=== PATIENT | male | born 1985 | race Caucasian/White ===

== ENCOUNTER 2018-09-01 22:00 | Emergency (ER) | payer OTHER ==
--- NOTE | 2018-09-01 22:09 | EDPHY ---
H & P Time Seen by Provider: 09/01/18 22:08 HPI/ROS: Chief complaint. Migraine headache HPI. 33-year-old male with history of migraine headaches. Recently moved here from [place] and does not have his usual Imitrex that he treats his headaches with. This is a typical headache and began about 30 min ago. He gets a visual aura at onset. No recent head injury. 2 weeks ago had URI symptoms. Denies focal weakness or paresthesias. Headache is typical. ROS 10 systems were reviewed and negative with the exception of the elements mentioned in the history of present illness Past Medical/Surgical History: Migraine headaches Social History: Single, nonsmoker, no alcohol Physical Exam: General Appearance: Alert pleasant well-developed male moderate distress vital signs are stable Eyes: Pupils equal and round no pallor or injection. ENT, Mouth: Mucous membranes are moist. Respiratory: There are no retractions, lungs are clear to auscultation. Cardiovascular: Regular rate and rhythm. Gastrointestinal: Abdomen is soft and nontender, no masses, bowel sounds normal. Neurological: Awake and alert, sensory and motor exams grossly normal. Skin: Warm and dry, no rashes. Musculoskeletal: Neck is supple nontender. Extremities symmetrical, full range of motion. Psychiatric: Patient is oriented X 3, there is no agitation. Constitutional: Initial Vital Signs Temperature (C) 36.6 C 09/01/18 22:08 Heart Rate 78 09/01/18 22:08 Respiratory Rate 18 09/01/18 22:08 Blood Pressure 142/67 H 09/01/18 22:08 O2 Sat (%) 98 09/01/18 22:08 O2 Delivery Mode Room Air Allergies/Adverse Reactions: No Known Allergies Allergy (Unverified 09/01/18 22:15) Home Medications: Medication Instructions Recorded SUMAtriptan [Imitrex Nasal 20 mg 20 mg NASAL ONCE #1 spray 09/01/18 [place] (RX)] Medical Decision Making Procedures: Patient and I discussed options of Imitrex as his headache has begun recently verses starting an IV using Reglan Benadryl Toradol. He would like to try the Imitrex 1st. 6 mg of Imitrex or given subcutaneously ED Course/Re-evaluation: Re-evaluation 10:55 p.m. Patient's headache is almost completely relieved. He feels well To be discharged Patient and I discussed treatment plan including criteria for return importance of follow-up and further evaluation. He expresses understanding and agreement Differential Diagnosis: Migraine headache that is typical in a patient that has a history of migraines. He got good relief from subcu Imitrex. Nothing to suggest meningitis - Data Points Medications Given: Discontinued Medications Sumatriptan Succinate (Imitrex Sc Injection) 6 mg SC EDNOW ONE Stop: 09/01/18 22:20 Last Admin: 09/01/18 22:26 Dose: 6 mg Departure - Departure Disposition: Home, Routine, Self-Care Clinical Impression: Migraine headache with aura Qualifiers: Status migrainosus presence: without status migrainosus Intractability: not intractable Qualified Code(s): G43.109 - Migraine with aura, not intractable, without status migrainosus Condition: Good Instructions: Migraine Headache (ED) Additional Instructions: Imitrex spray as needed. Maximum is 2 sprays per 24 hr Return for worsening symptoms Referrals: Anselmo Jenkins MD [Medical Doctor] - As per Instructions Prescriptions: SUMAtriptan [Imitrex Nasal 20 mg [place] (RX)] 20 mg NASAL ONCE #1 spray
[2018-09-01] MEDS ORDERED: SUMAtriptan 6 MG/0.5 ML VIAL SC ONE (22:19)
[2018-09-01 23:11] VITALS: BP 124/62
== END 2018-09-01 23:10 | disposition home or self-care (01) ==
LOC: CED 22:00
DX: G43.109 Migraine with aura, not intractable, without status migrainosus (principal)
CPT/HCPCS: J3030